=== PATIENT | male | born 1950 | race Caucasian/White ===

== ENCOUNTER 2024-03-11 13:33 | Emergency (ER) | payer MEDICARE ==
[2024-03-11] MEDS ORDERED: Lidocaine-Prilocaine 2.5% Cream 5 GM TUBE ONE (14:21)
== END 2024-03-11 16:48 | disposition home or self-care (01) ==
LOC: MADERS 13:33
DX: S09.90XA Unspecified injury of head, initial encounter (principal); E78.5 Hyperlipidemia, unspecified; W19.XXXA Unspecified fall, initial encounter; Z79.899 Other long term (current) drug therapy
CPT/HCPCS: 12001; 70450; 71045